=== PATIENT | female | born 1995 | race Caucasian/White ===

== ENCOUNTER → 2018-09-22 13:19 | Outpatient (CLI) | payer MEDICAID, SELFPAY ==
[2016-10-13 23:15] VITALS: BMI 25.5
[2018-09-22 14:31] LABS: AST(SGOT) 15 U/L (15-37); Alanine Aminotransfer ALT/SGPT 20 U/L (13-56); Albumin, Serum 3.7 g/dL (3.2-5.0); Alkaline Phosphatase 79 U/L (45-117); Bilirubin, Direct 0.14 mg/dL (0.00-0.30); Globulin 3.7 g/dL (2.2-4.2); Protein, Total 7.4 g/dL (6.4-8.2)
[2018-09-23 11:27] LABS: Hep C Antibodies <0.1 s/co ratio (0.0-0.9)
== END ==
DX: R63.0 Anorexia (principal); R53.81 Other malaise; R11.0 Nausea
CPT/HCPCS: 36415; 80076; 86803

== ENCOUNTER → 2019-01-06 | Outpatient (CLI) | payer MEDICAID, SELFPAY ==
[2019-01-06 18:06] LABS: Chlamydia Trachomatis by PCR Negative (Negative); Neisserai gonorrhoeae by PCR Negative (Negative); Probe Check PASS; Sample Adequacy Control PASS; Specimen Processing Control PASS
[2019-01-12 17:21] LABS: HPV Reflexed? NOT INDICATED
== END | disposition home or self-care (01) ==
LOC: LABSPEC 14:19
PROVIDERS: Visit Provider Obstetrics & Gynecology
DX: Z12.4 Encounter for screening for malignant neoplasm of cervix (principal); Z11.3 Encounter for screening for infections with a predominantly sexual mode of transmission
CPT/HCPCS: 87491; 87591; 88175; G0145

== ENCOUNTER 2019-02-28 22:45 | Emergency (ER) | payer MEDICAID, SELFPAY ==
[2019-02-28 22:45] VITALS: BP 118/72; PULSE 87; RESP 16; TEMP 36.9; O2SAT 99; BMI 26.7
[2019-02-28 23:34] LABS: Bacteria 0 SEEN /hpf (None Seen); Mucous, Urine 0 SEEN /hpf (<or=2+); Squamous Epithelial Cells - UA 0 SEEN /hpf (5-10); White Blood Cells 0 SEEN /hpf (0-5)
[2019-02-28] MEDS: 0.9% Normal Saline 1,000 ML 1000 ML IV (23:35)
[2019-02-28 23:39] LABS: Absolute Lymphocyte Count 3.63 X10^3/ul (0.83-4.51); Absolute Neutrophil Count 5.5 X10^3/uL (2.0-7.7); Basophil# 0.01 X10^3/uL; Basophil% 0.1 % (0-1); Eosinophil# 0.06 X10^3/uL; Eosinophils% 0.6 % (0-5); Hematocrit 35.6 % (37-47); Hemoglobin 11.9 g/dl (12.0-15.0); Lymphocyte # 3.63 X10^3/ul (4.0); Lymphocyte % 37.2 % (19-41); Mean Corp Hgb Conc 33.4 g/gl (32-36); Mean Corpuscular Hgb 26.7 pg (27.0-32.0); Mean Platelet Vol. 10.3 fl (6.2-12.0); Monocyte# 0.58 X10^3/uL; Monocyte% 5.9 % (0-10); Neutrophil # 5.46 X10^3/uL (2.7-7.7); Neutrophil % 56.1 % (47-70); Platelet Count 240 K/mm3 (150-450); RBC Distribution Width CV 12.8 % (11.6-14.6); RBC Distribution Width SD 36.3 fl (35.1-43.9); Red Blood Count 4.45 M/mm3 (4.2-5.4); White Blood Count 9.8 K/mm3 (4.4-11.0)
[2019-02-28 23:40] LABS: Color, Urine Yellow (Yellow); Glucose, Dipstick Normal (Normal); Ketone-Dipstick Negative (Negative); Leukocyte Esterase-Dipstick Negative /ul (Negative); Nitrite-Dipstick Negative (Negative); Occult Blood-Urine 50 /ul (Negative); Protein-Dipstick Negative (Negative); Specific Gravity, Urine 1.015 (1.002-1.030); Urine Bilirubin Dipstick Negative (Negative); Urine Clarity Clear (Clear); Urine Urobilinogen Normal (Normal); Urine pH 6.5 (5.0 - 8.0)
[2019-02-28 23:41] LABS: POSITIVE COUNT NO; POSITIVE DIFFERENTIAL NO; POSITIVE MORPHOLOGY NO
[2019-03-01 00:01] LABS: Red Blood Cells-Urine 0-5 SEEN /hpf (0-5)
--- NOTE | 2019-03-01 00:04 | ED.VISSUMM ---
- ER Visit Summary Date of Service: 03/01/19 Chief Complaint: Vaginal bleeding History of Present Illness: The patient is a 24 F who presents with vaginal bleeding that she noticed today. Patient states she took multiple tests at home and found out she was today. Patient then started having some spotting. Patient notices bleeding when she wipes. Patient denies any hematuria. Patient denies any cramping. Patient denies any dysuria. Patient denies any back or flank pain. Patient denies any pelvic pain. Patient admits to some nausea but denies any vomiting. Patient denies any fevers or chills. Physical Examination: Vital signs are stable. Patient is afebrile. Patient is in no acute distress. Oral mucosa is pink and moist. Neck is supple. Trachea is midline. There is no JVD noted. Heart was regular rate and rhythm. Lungs are clear and equal bilateral. Abdomen is soft. Bowel sounds are normal. There is no tenderness. There is no guarding noted. Skin is warm dry. Cranial nerves II through XII are intact. There are no focal motor or sensory deficits noted. The remaining physical exam is within normal limits. Test Results: CBC showed a slight anemia with a hemoglobin of 11.9 and hematocrit 35.6. Basic metabolic profile was normal. Urinalysis showed occult blood of 50 with 0-5 red blood cells. Quantitative hCG was obtained and was 177. Emergency Department Course and Treatment: Patient was advised of her test results. Patient was advised that her hCG level may be either a very early or possible miscarriage. Patient was advised that ultrasound will not show anything at that level. Patient was instructed on vaginal rest. Patient was instructed to follow-up with her CONSULTANT TEACHER in 2-3 days. Patient understood and was agreeable with the plan. All questions were answered. Disposition: Discharge home Impression: Threatened spontaneous This note was generated with [employer] dictation software. It may contain incorrect words, spelling, and punctuation that were not noted in review of the chart prior to signing ED Disposition - Plan for ED Patient: Disposition: Home or Assisted Living Diagnosis: Threatened spontaneous Instructions: POSSIBLE MISCARRIAGE (Threatened ) Referrals: Tabitha Macario MD [Primary Care Provider] - 2 Days
[2019-03-01 00:13] LABS: hCG Titer Quant., Serum 177 mIU/mL (1-3)
[2019-03-01 00:44] LABS: Anion Gap 6 (5-15); BUN 12 mg/dL (7-18); BUN/Creat Ratio 14.5 RATIO (10-20); Calcium,Total 8.9 mg/dL (8.5-10.1); Chloride 111 mmol/L (98-107); Creatinine, Serum 0.83 mg/dL (0.55-1.02); EST Glomerular Filtration Rate 88 mL/min (>60); Est Glom Filt Rate - Afr Amer 107 mL/min (>60); Estimated Creatinine Clearance 99.88 ml/min; Glucose 97 mg/dL (74-106); Potassium 3.9 mmol/L (3.5-5.1); Sodium Level 142 mmol/L (136-145)
[2019-03-01 02:00] VITALS: BP 125/89; PULSE 82; RESP 16; O2SAT 100
== END 2019-03-01 02:02 | disposition home or self-care (01) ==
PROVIDERS: Emergency Provider Emergency Medicine
DX: O20.0 Threatened abortion (principal); Z3A.00 Weeks of gestation of pregnancy not specified
CPT/HCPCS: 80048; 81001; 84702; 85025; 96360; 99283; J7030; A4216

== ENCOUNTER → 2019-03-23 16:27 | Outpatient (CLI) | payer MEDICAID, SELFPAY ==
[2019-02-28 22:45] VITALS: BMI 26.7
[2019-03-23 19:28] LABS: Chlamydia Trachomatis by PCR Negative (Negative); Neisserai gonorrhoeae by PCR Negative (Negative); Probe Check PASS; Sample Adequacy Control PASS; Specimen Processing Control PASS
== END ==
PROVIDERS: Visit Provider Obstetrics & Gynecology
DX: Z32.01 Encounter for pregnancy test, result positive (principal); Z11.3 Encounter for screening for infections with a predominantly sexual mode of transmission
CPT/HCPCS: 87491; 87591

== ENCOUNTER → 2019-04-21 09:52 | Outpatient (CLI) | payer MEDICAID, SELFPAY ==
[2019-04-21 10:46] LABS: Color, Urine Yellow (Yellow); Glucose, Dipstick Normal (Normal); Ketone-Dipstick Negative (Negative); Leukocyte Esterase-Dipstick 25 /ul (Negative); Nitrite-Dipstick Negative (Negative); Occult Blood-Urine Negative /ul (Negative); Protein-Dipstick Negative (Negative); Urine Bilirubin Dipstick Negative (Negative); Urine Clarity Sl. Cloudy (Clear); Urine Urobilinogen Normal (Normal)
[2019-04-21 10:48] LABS: Absolute Lymphocyte Count 2.26 X10^3/uL (0.83-4.51); Absolute Neutrophil Count 6.9 X10^3/uL (2.0-7.7); Basophil# 0.02 X10^3/uL; Basophil% 0.2 % (0-1); Eosinophil# 0.04 X10^3/uL; Eosinophils% 0.4 % (0-5); Hematocrit 35.7 % (37-47); Hemoglobin 12.2 g/dL (12.0-15.0); Lymphocyte # 2.26 X10^3/ul (4.0); Lymphocyte % 23.2 % (19-41); Mean Corp Hgb Conc 34.2 g/dL (32-36); Mean Corpuscular Hgb 27.4 pg (27.0-32.0); Mean Corpuscular Volume 80.2 fL (81-99); Mean Platelet Vol. 10.3 fl (6.2-12.0); Monocyte# 0.52 X10^3/uL; Monocyte% 5.3 % (0-10); NRBC Flagged by Analyzer 0 % (0-5); Neutrophil # 6.88 X10^3/uL (2.7-7.7); Neutrophil % 70.5 % (47-70); Platelet Count 242 K/mm3 (150-450); RBC Distribution Width CV 13.2 % (11.6-14.6); RBC Distribution Width SD 38.1 fl (35.1-43.9); Red Blood Count 4.45 M/mm3 (4.2-5.4); White Blood Count 9.8 K/mm3 (4.4-11.0)
[2019-04-21 10:56] LABS: COTININE Drug Screen Negative (<200 ng/mL)
[2019-04-21 11:04] LABS: Amphetamine Urine VISTA NEGATIVE (<1000 ng/mL); Barbiturate Urine VISTA NEGATIVE (< 200 ng/mL); Benzodiazepine Urine VISTA NEGATIVE (< 200 ng/mL); Cocaine Urine VISTA NEGATIVE (< 300 ng/mL); Ecstacy Urine VISTA NEGATIVE (< 500 ng/mL); Methadone Urine VISTA NEGATIVE (< 300 ng/mL); PCP Urine VISTA NEGATIVE (< 25 ng/mL); THC Urine VISTA NEGATIVE (< 50 ng/mL); Vista UDS pH Range 6
[2019-04-21 11:23] LABS: Thyroid Stim Hormone (TSH) 1.39 uIU/mL (0.358-3.74)
[2019-04-21 12:09] LABS: HIV - WCH Non-Reactive (Nonreactive); Hepatitis B Surface Antigen Non-Reactive (Nonreactive); Hepatitis C Antibody Non-Reactive (Nonreactive); Rubella IgG 95.8 IU/mL
[2019-04-23 01:38] LABS: Prenatal RPR NONREACTIVE (NONREACTIVE)
== END ==
PROVIDERS: Visit Provider Obstetrics & Gynecology
DX: Z34.81 Encounter for supervision of other normal pregnancy, first trimester (principal)
CPT/HCPCS: 36415; 80307; 81002; 82306; 84443; 85025; 86703; 86762; 86803; 87340

== ENCOUNTER 2019-05-22 00:27 | Emergency (ER) | payer MEDICAID, SELFPAY ==
[2019-05-22 00:28] VITALS: BP 150/84; PULSE 98; RESP 18; TEMP 37.1; O2SAT 96; BMI 28.6
--- NOTE | 2019-05-22 00:48 | EKG12_ITS ---
Test Reason : CP Blood Pressure : / mmHG Vent. Rate : 101 BPM Atrial Rate : 101 BPM P-R Int : 146 ms QRS Dur : 086 ms QT Int : 342 ms P-R-T Axes : 060 047 016 degrees QTc Int : 443 ms Sinus tachycardia Possible Left atrial enlargement Borderline ECG Confirmed by HALLEY GREGORY, RIGO ([id number]), film editor DONNA MORROW ([id number]) on 05/25/2019 11:57:28 AM Referred By: FLOWER Confirmed By:KATHERIN ROWLEY MD
--- NOTE | 2019-05-22 00:48 | RAD_ITS ---
STUDY: X-RAY CHEST REASON FOR EXAM: Female, 24 years old. Left shoulder pain TECHNIQUE: Single AP portable view of the chest. COMPARISON: None. FINDINGS: The lungs are clear and expanded. There is no demonstrated pleural abnormality. Normal size heart. Normal mediastinum and [place]. Normal visualized pulmonary arteries. Normal visualized aortic arch and descending thoracic aorta. Normal visualized thoracic spine. Normal visualized ribs, clavicles, and shoulders. There is no demonstrated abnormality of the visualized soft tissue structures of the upper abdomen. RAD/Chest 1 View (Portable) IMPRESSION: Normal x-ray examination of the chest. Electronically Signed: Mark López, at 1:51 EDT Tel , Service support ,
--- NOTE | 2019-05-22 00:54 | ED.DCSUM_ITS ---
- ER Visit Summary Date of Service: 05/22/19 Chief Complaint: Chest pain History of Present Illness: The patient is a 24 F who presents with chest pain that began today. Patient states pain was there when she woke up. Patient describes the pain as sharp and throbbing. Patient states the pain is over the left chest. Patient states she was having pain in her left shoulder and left neck earlier in the day. Patient states her pain is worse with deep breathing and movement of her torso. Patient states her pain improves with bending forward. Patient states she does have some shortness of breath. Patient denies any nausea or vomiting. Patient denies any diaphoresis. Patient denies any palpitations or lightheadedness. Patient states she does have some reflux symptoms. Patient denies any cough or fever. Patient is approximately 16 weeks . Patient denies any recent travel or recent surgery. Patient denies any history of DVT or PE. Patient denies any cardiac risk factors. Physical Examination: Vital signs are stable except for slightly elevated blood pressure 150/84. Patient is afebrile. Patient is in no acute distress. Oral mucosa is pink and moist. Neck is supple. Trachea is midline. There is no JVD noted. Heart was regular rate and rhythm. Lungs are clear and equal bilaterally. There is reproducible tenderness over the left lower chest wall. There is no bony crepitance or step-off. Abdomen is soft. Bowel sounds are normal. There is no tenderness. There is no guarding noted. Skin is warm dry. Cranial nerves II through XII are intact. There are no focal motor or sensory deficits noted. Test Results: EKG showed sinus rhythm with a rate of 101. There is some left atrial enlargement. There are no acute ST or T wave changes. Portable chest x- ray was obtained. There is no acute cardiopulmonary process. This is interpreted by the radiologist and myself. CBC showed a mild leukocytosis of 13.8. Hemoglobin was 11.6 and hematocrit 34.2. Basic metabolic profile was within normal limits. Troponin was normal. D-dimer was elevated at 0.81. Because of this, a CTA of the chest was obtained. There is no evidence of pulmonary embolism or dissection. Emergency Department Course and Treatment: Patient was given aspirin here. Patient has a HEART score of 1. Patient was advised that this is low risk for acute cardiac event. Patient was advised that this is most likely muscular strain in her chest wall. Patient was instructed to follow-up with her primary care physician and DEVELOPMENT TEAM LEAD in 5 to 7 days. Patient understood and was agreeable with the plan. All questions were answered. Disposition: Discharge home Impression: Chest pain of uncertain etiology This note was generated with [employer] dictation software. It may contain incorrect words, spelling, and punctuation that were not noted in review of the chart prior to signing ED Disposition - Plan for ED Patient: Disposition: Home or Assisted Living Diagnosis: Chest pain Instructions: CHEST PAIN, Uncertain Cause Referrals: Care Physician,No Primary [Primary Care Provider] -
[2019-05-22] MEDS: Aspirin 81 MG TAB.CHEW 324 MG PO (01:03)
[2019-05-22] MEDS: 0.9% Normal Saline 1,000 ML 1000 ML IV (01:04)
[2019-05-22 01:06] LABS: Absolute Lymphocyte Count 3.39 X10^3/uL (0.83-4.51); Absolute Neutrophil Count 9.8 X10^3/uL (2.0-7.7); Basophil# 0.02 X10^3/uL; Basophil% 0.1 % (0-1); Eosinophil# 0.04 X10^3/uL; Eosinophils% 0.3 % (0-5); Hematocrit 34.2 % (37-47); Hemoglobin 11.6 g/dL (12.0-15.0); Lymphocyte # 3.39 X10^3/ul (4.0); Lymphocyte % 24.5 % (19-41); Mean Corp Hgb Conc 33.9 g/dL (32-36); Mean Corpuscular Hgb 27.6 pg (27.0-32.0); Mean Corpuscular Volume 81.4 fL (81-99); Mean Platelet Vol. 10.3 fl (6.2-12.0); Monocyte# 0.55 X10^3/uL; NRBC Flagged by Analyzer 0 % (0-5); Neutrophil # 9.77 X10^3/uL (2.7-7.7); Neutrophil % 70.7 % (47-70); Platelet Count 230 K/mm3 (150-450); RBC Distribution Width SD 38.3 fl (35.1-43.9); White Blood Count 13.8 K/mm3 (4.4-11.0)
[2019-05-22 01:12] VITALS: O2SAT 99
[2019-05-22 01:18] LABS: Anion Gap 8 (5-15); BUN 13 mg/dL (7-18); BUN/Creat Ratio 22.6 RATIO (10-20); Calcium,Total 8.9 mg/dL (8.5-10.1); Chloride 107 mmol/L (98-107); Creatinine, Serum 0.58 mg/dL (0.55-1.02); EST Glomerular Filtration Rate 135 mL/min (>60); Est Glom Filt Rate - Afr Amer 163 mL/min (>60); Estimated Creatinine Clearance 142.94 ml/min; Glucose 100 mg/dL (74-106); Potassium 3.4 mmol/L (3.5-5.1); Sodium Level 137 mmol/L (136-145)
--- NOTE | 2019-05-22 01:35 | ED.RN ---
DR. CRENSHAW WAS MADE AWARE THAT PATIENT WAS HAVING PAIN UP UNDER HER LEFT BREAST THAT WAS INCREASING WHEN SHE GOT UP TO THE BATHROOM. NO NEW ORDERS ENTERED.
[2019-05-22 01:41] LABS: D-Dimer Quantitative (DVT/PE) 0.81 FEU/ug/m (0.27-0.49)
--- NOTE | 2019-05-22 01:42 | CT_ITS ---
STUDY: CTA CHEST REASON FOR EXAM: Female, 24 years old. Elevated d-dimer. Increased WBC count RADIATION DOSAGE (If Supplied By Facility): CTDIvol = ( 11.63 ) mGy, DLP = ( 415.76 ) mGycm TECHNIQUE: The examination was performed with the intravenous administration of 75ML IV Isovue 370. Post-processing of the angiographic images was performed, with multiplanar reformation and 3D reconstruction. Individualized dose optimization techniques were used for this CT. COMPARISON: None. FINDINGS: TRACHEA, THYROID, ESOPHAGUS: No tracheomalacia,stricture or wall thickening. Thyroid and esophagus are normal CARDIOVASCULAR SYSTEM: The thoracic aorta is normal with no focal aneurysm or dissection. There are no abnormal calcifications/metallic densities at the aortic root. The pulmonary trunk and the left and right pulmonary arteries and their lobar and segmental branches all fail to show any abnormal and persistent filling defects to indicate the presence of pulmonary embolism. The heart is normal in size with no demonstration of any right ventricular strain. No developmental vascular anomalies are seen. JOSE MARIA AND LYMPH NODES: No hilar masses and no mediastinal, hilar, axillary or supraclavicular adenopathy LUNGS, LOW-ATTENUATION: No traction bronchiectasis, honeycombing,emphysema, lung cysts or cavitations LUNGS, HIGH ATTENUATION: No nodules/masses, ground glass opacities/consolidations or increased interstitial markings LUNGS, MOSAIC/CRAZY PAVING: Not evident PLEURA AND CHEST WALL: No plural effusions, pneumothoraces,rib fractures or any osteolytic/osteoblastic changes . The soft tissue chest wall including the breasts are normal UPPER ABDOMEN: Unremarkable CT/CTA Chest W/WO Contrast IMPRESSION: Normal CTA chest examination, without a demonstrated pulmonary embolism or arterial dissection. No acute findings in the lungs Electronically Signed: Alfa Farrar MD at 2:51 EDT Tel , Service support ,
[2019-05-22 02:36] VITALS: BP 125/98; PULSE 102; RESP 22; O2SAT 100
[2019-05-22 03:13] VITALS: BP 120/75; PULSE 97; RESP 15; O2SAT 99
== END 2019-05-22 03:14 | disposition home or self-care (01) ==
PROVIDERS: Emergency Provider Emergency Medicine
DX: O99.89 Other specified diseases and conditions complicating pregnancy, childbirth and the puerperium (principal); R07.9 Chest pain, unspecified; Z3A.16 16 weeks gestation of pregnancy
CPT/HCPCS: 71045; 71275; 80048; 84484; 85025; 85379; 93005; 96360; 96361; 99284; J7030; Q9967; A4216

== ENCOUNTER 2019-08-22 07:25 | Outpatient (CLI) | payer MEDICAID, SELFPAY ==
[2019-08-22 07:51] VITALS: BMI 29.7
[2019-08-22] MEDS: Lactated Ringers 500 ML IV.SOLN. 1000 ML IV (07:55)
[2019-08-22] MEDS: Ondansetron 4 MG/2 ML Vial IV (08:05)
[2019-08-22 08:38] LABS: ALB/GLOB Ratio 0.6 RATIO (0.9-2.4); AST(SGOT) 15 U/L (15-37); Alanine Aminotransfer ALT/SGPT 13 U/L (13-56); Albumin, Serum 2.9 g/dL (3.2-5.0); Alkaline Phosphatase 126 U/L (45-117); Anion Gap 10 (5-15); BUN 8 mg/dL (7-18); BUN/Creat Ratio 11.5 RATIO (10-20); Calcium,Total 8.6 mg/dL (8.5-10.1); Chloride 110 mmol/L (98-107); Creatinine, Serum 0.69 mg/dL (0.55-1.02); EST Glomerular Filtration Rate 108 mL/min (>60); Est Glom Filt Rate - Afr Amer 131 mL/min (>60); Estimated Creatinine Clearance 120.15 ml/min; Globulin 4.5 g/dL (2.2-4.2); Glucose 101 mg/dL (74-106); Potassium 3.7 mmol/L (3.5-5.1); Protein, Total 7.4 g/dL (6.4-8.2); Sodium Level 140 mmol/L (136-145)
[2019-08-22 08:43] LABS: Mucous, Urine 0 SEEN /hpf (<or=2+); Red Blood Cells-Urine 0 SEEN /hpf (0-5)
[2019-08-22 08:44] LABS: Color, Urine Yellow (Yellow); Glucose, Dipstick Normal (Normal); Ketone-Dipstick 5 mg/dl (Negative); Leukocyte Esterase-Dipstick 25 /ul (Negative); Nitrite-Dipstick Negative (Negative); Occult Blood-Urine 10 /ul (Negative); Protein-Dipstick 30 mg/dl (Negative); Specific Gravity, Urine 1.015 (1.002-1.030); Urine Bilirubin Dipstick Negative (Negative); Urine Clarity Clear (Clear); Urine Urobilinogen Normal (Normal)
[2019-08-22 08:52] LABS: Bacteria 1+ /hpf (None Seen); Squamous Epithelial Cells - UA 0-5 SEEN /hpf (5-10); White Blood Cells 0-5 SEEN /hpf (0-5)
--- NOTE | 2019-08-22 13:05 | OB.TRI.NOTE ---
History of Present Illness Date of Service: 08/22/19 Was patient seen by the physician?: Yes Reason For Visit: BACK PAIN,ABD PAIN, VOMITING Date of Service: 08/22/19 Final DYLLAN: 11/07/19 Final DYLLAN Source: US <20 weeks Gestational age: 29 Weeks and 0 Days History of Present Illness: Pt states she began vomiting last evening, now 10 times by arrival at [facility]; small amount diarrhea; denies fever, malaise, STROUD or s/s UTI; states her young son has had viral illness with vomiting recently Allergies No Known Allergies Allergy (Verified 10/13/16 23:17) Laboratory Studies: Laboratory Tests 08/22/19 08/22/19 Range/Units 08:25 07:55 Sodium 140 (136-145) mmol/L Potassium 3.7 (3.5-5.1) mmol/L Chloride 110 H (98-107) mmol/L Carbon Dioxide 20.0 L (21.0-32.0) mmol/L Anion Gap 10 (5-15) BUN 8 (7-18) mg/dL Creatinine 0.69 (0.55-1.02) mg/dL Estim Creat Clear Calc 120.15 ml/min Est GFR (MDRD) Af Amer 131 (>60) mL/min Est GFR (MDRD) Non-Af 108 (>60) mL/min BUN/Creatinine Ratio 11.5 (10-20) RATIO Glucose 101 (74-106) mg/dL Calcium 8.6 (8.5-10.1) mg/dL Total Bilirubin 0.40 (0.20-1.00) mg/dL AST 15 (15-37) U/L ALT 13 (13-56) U/L Alkaline Phosphatase 126 H (45-117) U/L Total Protein 7.4 (6.4-8.2) g/dL Albumin 2.9 L (3.2-5.0) g/dL Globulin 4.5 H (2.2-4.2) g/dL Albumin/Globulin Ratio 0.6 L (0.9-2.4) RATIO Urine Color Yellow (Yellow) Urine Clarity Clear (Clear) Urine pH 6.0 (5.0 - 8.0) Ur Specific [place] 1.015 (1.002-1.030) Urine Protein 30 H (Negative) mg/dl Urine Glucose (UA) Normal (Normal) mg/dl Urine Ketones 5 H (Negative) mg/dl Urine Occult Blood 10 H (Negative) /ul Urine Nitrite Negative (Negative) Urine Bilirubin Negative (Negative) mg/dL Urine Urobilinogen Normal (Normal) mg/dl Ur Leukocyte Esterase 25 H (Negative) /ul Urine RBC 0 SEEN (0-5) /hpf Urine WBC 0-5 SEEN (0-5) /hpf Ur Squamous Epith Cells 0-5 SEEN (5-10) /hpf Urine Bacteria 1+ (None Seen) /hpf Urine Mucus 0 SEEN (<or=2+) /hpf Physical Exam General: Alert, Oriented x3, Cooperative HEENT: PERRLA, EOMI Cardiovascular: Regular rate, Regular Rhythm Lungs: Clear to auscultation Abdomen: Bowel Sounds Present, Soft, Non Tender - Negative suprapubic tenderness, negative CVA tenderness, Non-Distended, Passing Flatus, Gravid Extremities:: No edema Neurological: Cranial nerves II-XII grossly intact, Deep Tendon Reflexes 2+/4 and Symmetrical, Neuro grossly intact NST - FHR Rate Baby A Baseline: 145 Variability:: Moderate Accelerations:: 10 x 10 Decelerations:: Variable NST Reactive:: Appropriate for gestational age FHR Category:: Category II - Reassuring, appropriate for gestational age Impression/Plan Impression: Viral illness Possible UTI Plan: IV LR Bolus given CMP drawn UA done; inadequate specimen for culture; pt will try prior to discharge; if unable to provide another specimen, can come to office tomorrow to provide Zofran, 4mg IVP x 1 Discharge home with diet instructions, rest, increase fluids RX for Zofran, 4mg PO Q8 hours PRN; may take Imodium, per package instructions for diarrhea; Tylenol PRN for back pain Call if s/s persist or do not improve
== END 2019-08-22 13:03 | disposition home or self-care (01) ==
LOC: WPOUT 07:42 → WP 07:44
PROVIDERS: Visit Provider Advanced Practice Midwife
DX: O98.513 Other viral diseases complicating pregnancy, third trimester (principal); B34.9 Viral infection, unspecified; O26.893 Other specified pregnancy related conditions, third trimester; M54.9 Dorsalgia, unspecified; R10.9 Unspecified abdominal pain; Z3A.29 29 weeks gestation of pregnancy
CPT/HCPCS: 96374; 36415; 59025; 59050; 80053; 81001; 99218; J7120; G0378; J2405

== ENCOUNTER → 2019-08-24 11:09 | Outpatient (CLI) | payer MEDICAID, SELFPAY ==
[2019-08-22 07:51] VITALS: BMI 29.7
[2019-08-24 13:39] LABS: Hematocrit 31.5 % (37-47); Hemoglobin 10.1 g/dL (12.0-15.0); Mean Corp Hgb Conc 32.1 g/dL (32-36); Mean Corpuscular Hgb 25.8 pg (27.0-32.0); Mean Corpuscular Volume 80.6 fL (81-99); Mean Platelet Vol. 10.5 fl (6.2-12.0); Platelet Count 246 K/mm3 (150-450); RBC Distribution Width CV 13.5 % (11.6-14.6); RBC Distribution Width SD 39.1 fl (35.1-43.9); Red Blood Count 3.91 M/mm3 (4.2-5.4); White Blood Count 9.8 K/mm3 (4.4-11.0)
[2019-08-24 13:54] LABS: Glucose Challenge Gest 1H 50g 83 mg/dL (70-140)
== END ==
PROVIDERS: Visit Provider Obstetrics & Gynecology
DX: O99.283 Endocrine, nutritional and metabolic diseases complicating pregnancy, third trimester (principal); E55.9 Vitamin D deficiency, unspecified; Z3A.00 Weeks of gestation of pregnancy not specified
CPT/HCPCS: 36415; 82306; 82950; 85027

== ENCOUNTER → 2019-10-11 | Outpatient (CLI) | payer MEDICAID, SELFPAY | END | disposition home or self-care (01) | LOC: LABSPEC 14:05 | PROVIDERS: Visit Provider Obstetrics & Gynecology | DX: Z36.85 Encounter for antenatal screening for Streptococcus B (principal) | CPT/HCPCS: 87081 ==

== ENCOUNTER 2019-10-30 13:20 | Outpatient (CLI) | payer MEDICAID, SELFPAY ==
[2019-10-30 13:28] VITALS: BMI 35.5
--- NOTE | 2019-10-30 14:07 | OB.TRI.NOTE ---
- Problem List (1) 38 weeks gestation of Status: Acute History of Present Illness Date of Service: 10/30/19 Was patient seen by the physician?: Yes Reason For Visit: NST, anxiety & depression Date of Service: 10/30/19 Final DYLLAN: 11/07/19 Final DYLLAN Source: US <20 weeks Gestational age: 38 Weeks and 6 Days History of Present Illness: 24yo @ 38 6/7wga presents for scheduled NST to follow low normal baseline FH yesterday in office during evaluation for decreased movement. Patient reports excellent movement today. Denies contractions, leaking of fluid or vaginal bleeding. She reports isolation, decreased motivation, irritability, lack of focus during the day and has increased her Zoloft from 100mg to 200mg 2-3x/week the last [address] the last month. She notes however she feels even worse when she does not do this. Allergies No Known Allergies Allergy (Verified 10/30/19 13:30) Physical Exam Vitals: AVSS General: Alert, Oriented x3, Cooperative, No apparent distress HEENT: Atraumatic, Normocephalic Neurological: Neuro grossly intact NST - FHR Rate Baby A Baseline: 125 Variability:: Moderate Accelerations:: 15 x 15 Decelerations:: None NST Reactive:: Yes FHR Category:: Category I Uterine Activity:: 0/10, occasional irritability Impression/Plan 24yo @ 38 6/7wga -Reactive NST, status reassuring. Reviewed FM, labor precautions. -Discussed mood sx further, No SI. pt no longer working, started maternity leave and this is likely precipitant from discussion. +anxiety and depressive sx in discussion. Will continue once weekly counseling. Increase Zoloft 150mg PO daily. Exercise prescription given.
== END 2019-10-30 14:15 | disposition home or self-care (01) ==
LOC: WPOUT 13:26 → WP 13:27
PROVIDERS: Visit Provider Obstetrics & Gynecology
DX: O36.8330 Maternal care for abnormalities of the fetal heart rate or rhythm, third trimester, not applicable or unspecified (principal); O99.343 Other mental disorders complicating pregnancy, third trimester; F32.9 Major depressive disorder, single episode, unspecified; F41.9 Anxiety disorder, unspecified; Z3A.38 38 weeks gestation of pregnancy
CPT/HCPCS: 59025; 59050; 99218; G0378

== ENCOUNTER 2019-11-01 08:00 | Inpatient (IN) | payer MEDICAID, SELFPAY ==
[2019-11-01 04:57] VITALS: BMI 35.9
[2019-11-01] MEDS: 0.9% Saline Lock 10 ML Syringe IV (05:35)
[2019-11-01] MEDS: fentaNYL 100 MCG/2 ML Ampul 25 MCG IV (05:35)
--- NOTE | 2019-11-01 07:34 | OB.TRI.HP_ITS ---
- Problem List (1) 39 weeks gestation of Status: Acute History of Present Illness Date of Service: 11/01/19 Was patient seen by the physician?: Yes Reason For Visit: RULE OUT LABOR Final DYLLAN: 11/07/19 Final DYLLAN Source: US <20 weeks Gestational age: 39 Weeks and 1 Days History of Present Illness: 24yo @ 39 1/7wga hx prior section presents with c/o painful contractions. Allergies No Known Allergies Allergy (Verified 11/01/19 05:00) - Pertinent Past Medical History Medical History: Past Medical History (Last Updated 11/01/19 @ 07:[address] Tabitha Macario MD) Depression Surgical History: Past Surgical History (Last Updated 11/01/19 @ 07:[address] Tabitha Macario MD) Previous section 2014 Physical Exam Vitals: avss General: Alert, Oriented x3, Cooperative, No apparent distress HEENT: Atraumatic, Normocephalic Abdomen: Soft, Non Tender, Non-Distended, Gravid Neurological: Neuro grossly intact TOOL PROGRAMMER: Normal external genitalia Estimated gestational size: Appropriate for gestational size Presentation: Cephalic Cervix Dilation (cm): 1.5 Station: -3 Effacement (%): 75 NST - FHR Rate Baby A Baseline: 140 Variability:: Moderate Accelerations:: 15 x 15 Decelerations:: Variable NST Reactive:: Yes FHR Category:: Category II Uterine Activity:: 3/10 min Impression/Plan 24yo @ 39 1/7wga -Discussed early admission versus continued observation. Reviewed r/b early admission including increased use of pitocin was associated potential increased risk for uterine rupture. Following discussion, pt opts to continue observation at this time. Will plan for repeat cervix check approximately 2 hours after the last. Continuous monitoring given TOLAC. -Maternal and statuses reassuring
[2019-11-01] MEDS: Lactated Ringers 1,000 ML 50 ML IV (08:06)
--- NOTE | 2019-11-01 08:09 | PCM.HP.OB ---
- Problem List (1) 39 weeks gestation of Status: Acute History Date of Admission: 12/25/14 Final DYLLAN: 11/07/19 Final DYLLAN Source: US <20 weeks Gestational age: 39 Weeks and 1 Days History of this : This is a 24 year-old, G [2], P 1[], at 39 1/7 weeks gestational age with c/o contractions. Medical History: Medical History (Last Updated 11/01/19 @ 07:[address] Tabitha Macario MD) Depression F32.9 Surgical History: Surgical History (Last Updated 11/01/19 @ 07:[address] Tabitha Macario MD) Previous section Z98.891 2015 Allergies No Known Allergies Allergy (Verified 11/01/19 05:00) Home Medications: Home Medications Cholecalciferol (Vitamin D3) [Vitamin D3] 5,000 unit PO DAILY 05/22/19 Pnv No.95/Ferrous Fum/Folic AC [ Caplet] 1 ea PO DAILY 05/22/19 Ferrous Sulfate 10/30/19 Sertraline HCl [Zoloft] 150 mg PO DAILY #45 tab 10/30/19 Smoking Status: Former smoker Alcohol: None Number of Fetus(es): 1 NST - FHR Rate Baby A Baseline: 140 Variability:: Moderate Accelerations:: 15 x 15 Decelerations:: Variable NST Reactive:: Yes FHR Category:: Category I Uterine Activity:: tracing poorly History Past Pregnancies: Past Pregnancies Delivery Date Name GA/ Weeks Outcome Route Wt Infant Sex Anesthesia Delivery Location FOB Provider 12/26/14 [place] 41 PLTCS, intolerance of labor PLTCS 3067g M Epidural [facility] Jose Miguel Gutierrez Labs: Mom's Current Diagnoses Major depressive disorder, single episode, unspecified 11/01/19 Anxiety disorder, unspecified 11/01/19 Maternal care for unspecified type scar from previous delivery 11/01/19 Maternal care for abnormalities of the heart rate or rhythm, third trimester, not applicable or unspecified 11/01/19 Labor and delivery complicated by other cord complications, not applicable or unspecified 11/01/19 Second degree perineal laceration during delivery 11/01/19 Abnormality in heart rate and rhythm complicating labor and delivery 11/01/19 Labor and delivery complicated by meconium in amniotic fluid 11/01/19 Other mental disorders complicating , third trimester 11/01/19 Other mental disorders complicating childbirth 11/01/19 Diseases of the circulatory system complicating the puerperium 11/01/19 Tachycardia, unspecified 11/01/19 Single live 11/01/19 38 weeks gestation of 11/01/19 39 weeks gestation of 11/01/19 Personal history of nicotine dependence 11/01/19 Mom's Labs & Results 11/01/19 11/01/19 11/03/19 08:00 08:00 09:50 WBC 19.7 H 14.7 H RBC 4.70 3.24 L Hgb 12.2 8.7 L Hct 38.5 27.1 L MCV 81.9 83.6 MCH 26.0 L 26.9 L MCHC 31.7 L 32.1 RDW Std Deviation 47.8 H 50.0 H RDW Coeff of [place]ag[place] 16.0 H 16.6 H Plt Count 246 182 MPV 10.8 10.1 Immature Gran % (Auto) 0.700 Neut % (Auto) 77.6 H Lymph % (Auto) 16.4 L Rich % (Auto) 4.8 Eos % (Auto) 0.3 Baso % (Auto) 0.2 Absolute Neuts (auto) 15.3 H Absolute Lymphs (auto) 3.24 Nucleated RBC % 0 Blood Type B POSITIVE Antibody Screen NEGATIVE Course Did the patient receive Yes care? Labs Blood Type: B RH: POSITIVE RPR/VDRL/Syphilis Nonreactive Rubella status Immune HbSAg Negative Date Done: 04/21/19 Chlamydia Negative Gonorrhea Negative HIV/AIDS Non-Reactive Group B Strep: Negative Current Obstetrical History Gestational Diabetes No Incompetent Cervix No Infertility No IUGR No Macrosomia No Hypertension/Pre-eclampsia No Placenta Previa/Abruption No PTL/PROM No Uterine anomaly No Oligohydramnios No Polyhydramnios No Multiple gestation No Past Medical History Asthma Yes: as a child Diabetes No Hypertension No Heart disease No Mitral valve prolapse No Neurologic/Seizure disorder/ No Migraines Kidney disease No Liver disease No Varicosities No Clotting disorders/Hx of DVT No Thyroid Dysfunction No Other medical diseases No Psychiatric disorders Yes: depression/anxiety Major trauma No Abnormal PAP smear No Sleep apnea No Mammogram in the last 2 years No Social History Marital Status: SINGLE Alleged father Jose Miguel Tomlinson Smoking Yes Smoking Status Former smoker How long have you used n/a substances (years)? Expected Delivery Method: Physical Exam Vitals: avss General: Alert, Oriented x3, Cooperative, No apparent distress HEENT: Atraumatic, Normocephalic Cardiovascular: Regular rate, Regular Rhythm, Normal S1, Normal S2 Lungs: Clear to auscultation, Normal air movement Abdomen: Soft, Non Tender, Non-Distended, Gravid Neurological: Neuro grossly intact TEMPLATE CUTTER: Normal external genitalia Estimated gestational size: Appropriate for gestational size Presentation: Cephalic Cervix Dilation (cm): 2 Station: -2 Effacement (%): 70 - by RN exam WS Assessment/Plan All Active Problems (Last Updated 11/01/19 @ 07:[address] Tabitha Macario MD) 39 weeks gestation of (Acute) 38 weeks gestation of (Resolved) This is a 24 year-old, G [2], P [1], at 39 1/7 weeks gestational age in latent labor, TOLAC. -Pt requests epidural, thus will admit at this time. Anesthesiology consultation. -Continuous monitoring. Consider amniotomy following placement of epidural with ISE. -Maternal and statuses overall reassuring.
[2019-11-01] MEDS: Lactated Ringers 500 ML 999 ML IV ×2 (08:15→19:27)
[2019-11-01 08:34] LABS: Absolute Lymphocyte Count 3.24 X10^3/uL (0.83-4.51); Absolute Neutrophil Count 15.3 X10^3/uL (2.0-7.7); Basophil# 0.04 X10^3/uL; Basophil% 0.2 % (0-1); Eosinophil# 0.05 X10^3/uL; Eosinophils% 0.3 % (0-5); Hematocrit 38.5 % (37-47); Hemoglobin 12.2 g/dL (12.0-15.0); Lymphocyte # 3.24 X10^3/ul (4.0); Lymphocyte % 16.4 % (19-41); Mean Corp Hgb Conc 31.7 g/dL (32-36); Mean Corpuscular Volume 81.9 fL (81-99); Mean Platelet Vol. 10.8 fl (6.2-12.0); Monocyte# 0.95 X10^3/uL; Monocyte% 4.8 % (0-10); NRBC Flagged by Analyzer 0 % (0-5); Neutrophil % 77.6 % (47-70); Platelet Count 246 K/mm3 (150-450); RBC Distribution Width SD 47.8 fl (35.1-43.9); White Blood Count 19.7 K/mm3 (4.4-11.0)
[2019-11-01] MEDS: fentaNYL-bupivacaine (epidural) 100 ML BAG EPIDURAL ×3 (09:25→18:15)
[2019-11-01] MEDS: Mag Hydrox/Al Hydrox/Simeth 30 ML UDC PO ×2 (09:47→18:59)
[2019-11-01] MEDS: Lactated Ringers 1,000 ML 200 ML IV ×2 (12:37→17:54)
[2019-11-01] MEDS: Ondansetron 4 MG/2 ML Vial IV (13:49)
--- NOTE | 2019-11-01 18:47 | PN.OBGYN_ITS ---
Patient Problems: Active and Suspected Problems (Last Updated 11/01/19 @ 07:[address] Tabitha Macario MD) 39 weeks gestation of (Acute) Subjective: Patient has progressed to 8 cm 95% effaced -2 station. Artificial rupture membrane shows moderate meconium stained fluid. Intrauterine pressure catheter and scalp lead placed. Epidural very effective. heart tones reactive and reassuring. - Physical Exam Vitals/I&O's: Weight: 229 lb 4.492 oz Body Mass Index (BMI) 35.9 Intake and Output for Last 24 Hours 10/30/19 10/31/19 11/01/19 23:59 23:59 23:59 Intake Total 2273.33 / 2273.33 Balance 2273.33 / 2273.33 Laboratory Results 11/01/19 08:00: WBC 19.7 H, RBC 4.70, Hgb 12.2, Hct 38.5, MCV 81.9, MCH 26.0 L, MCHC 31.7 L, RDW Std Deviation 47.8 H, RDW Coeff of [place]ag[place] 16.0 H, Plt Count 246, MPV 10.8, Immature Gran % (Auto) 0.700, Neut % (Auto) 77.6 H, Lymph % (Auto) 16.4 L, [place] % (Auto) 4.8, Eos % (Auto) 0.3, Baso % (Auto) 0.2, Absolute Neuts (auto) 15.3 H, Absolute Lymphs (auto) 3.24, Nucleated RBC % 0 11/01/19 08:00: Blood Type B POSITIVE, Antibody Screen NEGATIVE Current Medications Acetaminophen (Tylenol) 325 - 650 mg PO Q4H PRN PRN PRN Reason: Pain Score 1-3/10 Al Hydroxide/Mg Hydroxide (Mylanta Ii) 15 - 30 ml PO Q4H PRN PRN PRN Reason: INDIGESTION Last Admin: 11/01/19 09:47 Dose: 30 ml Documented by: Citric Acid/Sodium Citrate (Bicitra) 30 ml PO X1 PRN PRN Reason: Section Ephedrine Sulfate () 10 mg IV Q10M PRN PRN Reason: hypotension Ephedrine Sulfate () 10 mg IM Q30M PRN PRN Reason: hypotension Fentanyl Citrate (Sublimaze (100mcg Ampule)) 25 - 50 mcg IV Q2H PRN PRN PRN Reason: Pain Score 4-10/10 Fentanyl/Bupivacaine/Sodium Chlor () 0 ml EPIDURAL UD LAURY; Protocol Last Admin: 11/01/19 18:15 Dose: 100 ml Documented by: Lactated Ringer's () 500 mls @ 999 mls/hr IV .Q31M PRN PRN Reason: Epidural Last Infusion: 11/01/19 08:46 Dose: Infused Documented by: Lactated Ringer's () 500 mls @ 999 mls/hr IV .Q31M PRN PRN Reason: Corrective Measures Lactated Ringer's () 1,000 mls @ 50 mls/hr IV .Q20H LAURY Last Admin: 11/01/19 17:54 Dose: 200 mls/hr Documented by: Naloxone HCl 4 mg/ Dextrose 504 mls @ 0 mls/hr IV .Q0M PRN; Protocol PRN Reason: To maintain Resp. rate >10 Nalbuphine HCl (Nubain) 5 mg IV Q3H PRN PRN PRN Reason: ITCHING Naloxone HCl (Narcan) 0.02 mg IV Q1M PRN PRN Reason: RR< 10 AND PT UNRESPONSIVE Ondansetron HCl (Zofran) 4 mg IV Q4H PRN PRN PRN Reason: NAUSEA Last Admin: 11/01/19 13:49 Dose: 4 mg Documented by: Prochlorperazine Edisylate (Compazine Iv) 10 mg IV Q6H PRN PRN PRN Reason: NAUSEA Sodium Chloride () 10 - 40 ml IV X1 PRN PRN Reason: SALINE FLUSH Medical Necessity - Tobacco Use Smoking Status: Former smoker Assessment/Plan All Active Problems (Last Updated 11/01/19 @ 07:[address] Tabitha Macario MD) 39 weeks gestation of (Acute) 38 weeks gestation of (Resolved)
[2019-11-01] MEDS: Oxytocin 30 units/NS 500 ml 30 UNITS/500 ML IV.SOLN 334 UNITS IV (20:45)
--- NOTE | 2019-11-01 20:59 | PLAC_PTH ---
PATIENT: JAVID HERNANDEZ LOC: [facility] U#:[id number] AGE/SX: ROOM: WP010 RE11/01/[address]: Dr. Tabitha Gutierrez MD : 1995 BED: 1 DIS: 11/03/2019 SPEC #: [id number] RECD: 11/01/19 22:27 STATUS: RYAN SHAE #: [id number] ADOLFO: 11/01/19 20:[address]: Tal Denton DEPT: SURGICAL PATHOLOGY RECD BY: Curt Marion ENTERED: 11/02/19 09:24 SP TYPE: PLACENTA OTHR DR: Dr. Tabitha Gutierrez MD No Primary Care Phys Tissues: Placenta, NOS Procedures: Surgery Specimen Level V HEADER OPERATION: Vaginal delivery PRE-OP DIAGNOSIS: Meconium stained fluid and placenta TISSUE SUBMITTED: Placenta MICROSCOPIC DIAGNOSIS Placenta: Placental disc - third trimester placenta (526 gm). - Multiple areas of infarction with associated calcification, intraparenchymal hemorrhage and intervillous, perivillous and intravillous fibrin deposition (largest measuring 1 cm in greatest dimension). Membranes - no pathologic diagnosis. Umbilical cord - three blood vessels and moderate acute funisitis. SJ:shaylee 11/04/19 MICROSCOPIC DESCRIPTION Slides are reviewed. GROSS DESCRIPTION SPECIMEN: PLACENTA / CLINICAL INFORMATION: A. Weight: 3.209 kg B. Gestational Age: 39 weeks C. Sex: Male PLACENTAL WEIGHT (POST FIXATION): 526 gm PLACENTAL DIMENSIONS: 19 x 16 x 4 cm. Two succenturiate lobes are present measuring 3 and 4 cm in greatest dimension. PLACENTAL SHAPE: Usual ovoid with two succenturiate lobes. PLACENTAL WEIGHT FOR GESTATIONAL AGE: Within 10-99th percentile MEMBRANES - Present A. Insertion: Marginal B. Site of rupture from edge: 7 cm from edge of placental disc C. Color of membrane: Lassiter-greenish consistent with meconium staining D. Abnormalities: None UMBILICAL CORD - Present A. Color: Lassiter-arreola B. Insertion: Paracentral C. Length: 46 cm D. Diameter: 1.2 cm E. Number of vessels: Three F. Abnormalities: Focal increase in spiraling of umbilical cord is noted. PLACENTAL DISC - Present A. Color of surface: Lassiter-arreola B. surface abnormalities: None C. Maternal cotyledons: Intact with minimal tears D. Attached retro placental clot: No clot E. Cut surface: Dark red and spongy F. Lesions: Sections reveal two peripheral lassiter, indurated areas each measuring 1 cm in greatest dimension and four lassiter, indurated areas in the central portion of the placenta each measuring 0.2 to 1.5 cm in greatest dimension. Sections of the larger succenturiate lobe also reveal a lassiter, indurated area measuring 1 cm in greatest dimension. G. Separate clot: Multiple fragments of blood clot weighing 30 gm and measuring 9 x 7 x 2 cm. SECTIONS SUBMITTED: 1. Membrane roll 2. Cord, maternal end, central lassiter, indurated areas 3. Cord, end, peripheral, lassiter indurated areas. 4. Placental disc, and maternal surfaces, one central indurated area, largest 5. Placental disc, and maternal surfaces 6. Placental disc, and maternal surfaces, succenturiate lobe SJ:rg 11/03/19 TC:2 CPT: 64842
--- NOTE | 2019-11-01 21:02 | OP.PCM_ITS ---
Vaginal Delivery Maternal Presentation: Active Labor Amniotic Membrane Rupture Type: Artificial Amniotic Fluid Description: Moderate meconium Final DYLLAN: 11/07/19 Final DYLLAN Source: US <20 weeks Gestational age: 39 Weeks and 1 Days [place] doctor who attended delivery (if requested by OB): Chelsea Aggarwal MSF Date of Procedure: 11/01/19 Pre-Operative Diagnosis: IUP Post-Operative Diagnosis: IUP Surgery/ Procedure Performed: Vacuum Assisted Vaginal Delivery Type of Anesthesia: Epidural Description of Procedure: Spontaneous vaginal delivery of a viable male infant with Apgars of 8/6/5/9 from an occiput anterior presentation with moderate meconium stained fluid and meconium stained placental membranes. Cord around feet tight. No episiotomy. Second-degree midline laceration repaired with 3-0 Rapide suture under epidural. Right labial laceration 3 cm repaired with 3-0 Rapide suture. Kiwi vacuum used x1 gentle pull from low outlet to expedite delivery of the head due to deep decelerations with pushing. Single pop-off. Delivery physician: Tal Denton MD. Presentation: Vertex Placental Delivery Description: Spontaneous Placenta Disposition: Sent to Pathology Cord Vessel Description: 3 Vessels Cord Gases drawn per routine: ABG Cord Entanglement: - - Around feet/legs tight x 2 Estimated Blood Loss: 250 cc A gender: Male (1 minute): 8 (5 minute): 6 Episiotomy Description: None Laceration: Midline, 2nd degree Medications given after delivery: IV Pitocin Complications: None
--- NOTE | 2019-11-01 21:06 | DCINST_ITS ---
Discharge Diet: No Restrictions Discharge Activity: May Shower, May Take a Tub Bath May resume sexual activity in: 4-6 weeks Additional Activity Instructions:: Nothing in the vagina for 4-6 weeks. You may return to work/school in 6 weeks. Call your doctor if you observe: Fever of 101 or Higher, Inability to urinate, Inability to have a bowel movement, Using more than one pad per hour Additional Instructions: If you experience any of the following, contact your healthcare provider. * Bleeding that soaks a pad every hour for 2 hours * Unrelieved incision or abdominal pain * Swelling, redness, discharge or bleeding from your incision or episiotomy site * Your incision begins to separate * Problems urinating (including inability to urinate or burning while urinating). * Visual changes * Severe headache * Flu-like symptoms * Pain or redness in one of both of your breasts * Pain, warmth, tenderness or swelling in your legs, especially the calf area * Frequent nausea and vomiting * Symptoms of depression or anxiety If you experience any of the following, call 911 or go to the nearest Emergency Room. * Chest pain * Problems breathing * Seizure activity * Partial or complete paralysis of a body part, slurred speech, weakness or drooping of the face, or a sudden inability to walk or hold your balance Allergies/Adverse Reactions: Allergies No Known Allergies Allergy (Verified 11/01/19 05:00) Medications to take at Discharge Cholecalciferol (Vitamin D3) [Vitamin D3] 5,000 unit PO DAILY 05/22/19 Pnv No.95/Ferrous Fum/Folic AC [ Caplet] 1 ea PO DAILY 05/22/19 Ferrous Sulfate 10/30/19 Sertraline HCl [Zoloft] 150 mg PO DAILY #45 tab 10/30/19 Please Follow Up With: Tal Denton MD - [phone] When: Call to make an appointment with your doctor in 6 weeks. Primary Care Physician: Care Physician,No Primary [Primary Care Provider] - Test Results: Test results from this visit will be discussed in further detail at your follow- up appointment, if applicable.
[2019-11-01 22:27] LABS: Pathology Specimen OB SEE PATHOLOGY REPORT
[2019-11-02] VITALS: BP 121/65; PULSE 116; RESP 16; TEMP 37.1; O2SAT 98
[2019-11-02 03:57] VITALS: BP 123/69; PULSE 115; RESP 16; TEMP 37.3
[2019-11-02] MEDS: Senna/Docusate Sodium 1 Tablet PO ×2 (04:04→22:21)
[2019-11-02] MEDS: Ibuprofen 600 MG Tablet PO ×3 (04:04→22:19)
--- NOTE | 2019-11-02 07:47 | PCM.PN.BLA ---
Progress Note Patient seen, sleeping comfortably. Will revisit later today. STROKE Vital Signs/Narrative: Vital Signs Temp Pulse Resp BP 11/02/19 03:57 99.2 F H 115 H 16 123/69 H
[2019-11-02 09:40] VITALS: BP 112/65; PULSE 87; RESP 18; TEMP 36.6
[2019-11-02] MEDS: Sertraline 50 MG Tablet 150 MG PO (09:40)
[2019-11-02] MEDS: Acetaminophen 500 MG Tablet 1000 MG PO (09:40)
[2019-11-02 13:30] VITALS: BP 106/55; PULSE 100; RESP 16; TEMP 36.9
[2019-11-02 16:00] VITALS: BP 125/61; PULSE 101; RESP 18; TEMP 36.3
[2019-11-02] MEDS: oxyCODONE 5 MG Tablet PO ×2 (16:20→19:30)
[2019-11-02 19:36] VITALS: BP 124/65; PULSE 107; RESP 18; TEMP 36.3
[2019-11-03] MEDS: oxyCODONE 5 MG Tablet PO ×2 (03:36→12:47)
[2019-11-03 03:43] VITALS: BP 128/74; PULSE 108; RESP 18; TEMP 36.4
[2019-11-03] MEDS: Acetaminophen 500 MG Tablet 1000 MG PO (06:58)
--- NOTE | 2019-11-03 08:09 | PCM.PN.OB ---
Patient Problems: Active and Suspected Problems (Last Updated 11/01/19 @ 07:[address] Tabitha Macario MD) 39 weeks gestation of (Acute) Subjective: Reports her vagina and perineum are sore. No difficulties walking. Denies chest pain, headache, palpitations, shortness of breath or lightheadedness. Infant in SCN, nursing well. Pt denies heavy lochia. Objective: AVSS - Physical Exam Vitals/I&O's: Vital Signs Temp Pulse Resp BP Pulse Ox 97.5 F L 108 H 18 128/74 H 98 11/03/19 03:43 11/03/19 03:43 11/03/19 03:43 11/03/19 03:43 11/02/19 00:00 Oxygen Delivery Method Room Air Weight: 104 kg Body Mass Index (BMI) 35.9 Intake and Output for Last 24 Hours 11/01/19 11/02/19 11/03/19 23:59 23:59 23:59 Intake Total 3406.50 / 3406.50 333 / 333 Output Total 450 / 450 1000 / 1000 Balance 2956.50 / 2956.50 -667 / -667 General: Alert, Oriented x3, Cooperative, No apparent distress HEENT: Atraumatic, Normocephalic Lungs: Clear to auscultation, Normal air movement Cardiovascular: Regular rate, Regular Rhythm, Normal S1, Normal S2 Abdomen: Soft, Non Tender, Non-Distended Extremities: No edema, No Calf Tenderness Neurological: Neuro grossly intact Psych/Mental Status: Normal Affect, Appropriate, Alert and oriented to time, place, person, mood and affect Current Medications Acetaminophen (Tylenol) 1,000 mg PO Q8H PRN PRN PRN Reason: Pain Score 1-310 Last Admin: 11/03/19 06:58 Dose: 1,000 mg Documented by: Bisacodyl (Dulcolax) 10 mg RECTAL UD PRN PRN Reason: If no BM Dibucaine (Dibucaine) 1 applic TOPICAL TID PRN PRN; Protocol PRN Reason: Discomfort Hydrocortisone (Hytone) 1 applic TOPICAL TID PRN PRN; Protocol PRN Reason: Discomfort Ibuprofen (Motrin) 600 mg PO Q6H PRN PRN PRN Reason: Pain Score 1-310 Last Admin: 11/02/19 22:19 Dose: 600 mg Documented by: Methylergonovine Maleate (Methergine) 0.2 mg IM X1 PRN PRN Reason: Excess bleeding/uterine atony Ondansetron HCl (Zofran) 4 mg IV Q4H PRN PRN PRN Reason: Nausea Oxycodone HCl (Oxyir) 5 - 10 mg PO Q4H PRN PRN PRN Reason: Pain Score 4-10/10 Last Admin: 11/03/19 03:36 Dose: 10 mg Documented by: Senna/Docusate Sodium (Senokot-S, Genesis-Colace) 1 - 2 tablet PO DAILY PRN PRN PRN Reason: Constipation Last Admin: 11/02/19 22:21 Dose: 2 tablet Documented by: Sertraline HCl (Zoloft) 150 mg PO DAILY LAURY Last Admin: 11/02/19 09:40 Dose: 150 mg Documented by: Simethicone (Mylicon) 80 mg PO PCHS PRN PRN Reason: Indigestion/Stomach pain Last Admin: 11/02/19 11:24 Dose: 80 mg Documented by: Sodium Chloride () 5 - 15 ml IV UD PRN PRN Reason: SALINE FLUSH Zolpidem Tartrate (Ambien (Generic)) 5 mg PO QHS PRN PRN PRN Reason: Insomnia Medical Necessity - Tobacco Use Smoking Status: Former smoker Assessment/Plan All Active Problems (Last Updated 11/01/19 @ 07:[address] Tabitha Macario MD) 39 weeks gestation of (Acute) 38 weeks gestation of (Resolved) This is a 24 year-old, G [2], P [2 PPD#2 s/p vacuum assisted doing well. -Mild tachycardia - cbc today -Routine postop care - -Plan for d/c later today pending cbc results
[2019-11-03 09:37] VITALS: BP 128/65; PULSE 81; RESP 16; TEMP 36.7
[2019-11-03] MEDS: Sertraline 50 MG Tablet 150 MG PO (09:41)
[2019-11-03] MEDS: Senna/Docusate Sodium 1 Tablet PO (09:54)
[2019-11-03 09:59] LABS: Hematocrit 27.1 % (37-47); Hemoglobin 8.7 g/dL (12.0-15.0); Mean Corp Hgb Conc 32.1 g/dL (32-36); Mean Corpuscular Hgb 26.9 pg (27.0-32.0); Mean Corpuscular Volume 83.6 fL (81-99); Mean Platelet Vol. 10.1 fl (6.2-12.0); Platelet Count 182 K/mm3 (150-450); RBC Distribution Width CV 16.6 % (11.6-14.6); Red Blood Count 3.24 M/mm3 (4.2-5.4); White Blood Count 14.7 K/mm3 (4.4-11.0)
[2019-11-03 14:06] VITALS: BP 136/82; PULSE 116; TEMP 36.3
[2019-11-03] MEDS: Ibuprofen 600 MG Tablet PO (16:59)
[2019-11-03 17:10] VITALS: BP 140/70; PULSE 109; RESP 16; TEMP 36.6
--- NOTE | 2019-11-03 17:16 | NURSING ---
discharged to courtesy room
--- NOTE | 2019-11-04 11:40 | CASEMGMT ---
Social Work Labor and Delivery Patient address: [address] [place] [address] Patient phone: [phone] Date and Time of Referral: 11.01.2019, 231 Referral Source: Dr. Tal Denton Date and Time of Intervention: 11.04.2019, 0930 Informant: Medical records and mother of baby (MOB) Kathleen Pop. ?This engineering technical writer is familiar with MOB's psychosocial history from prior delivery at [facility]. Of note, for continuity of care of families admitted to the [facility], this engineering technical writer also provides social work to the SCN. ? Household composition:?MOB, father of baby (FOB) Jose Miguel Soriano, and MOB's older son. ??Plan for baby to return to this home when ready to discharge. ? ? Patient's parent/guardian status:?MOB is 24 year old single female, involved with FOB who is 31 years old. ?MOB had FOB have been together since MOB's oldest child was still in diapers. ?MOB denies any history of abuse, control or intimidation in relationship with FOB. ??Minor children include baby Anjel Soriano (FOB's first child), and then Herve Rajput DOB 12.26.2014 (father is Curt Butler). ?MOB reports Herve's father is not really involved at this time and has some substance use issues. ?? ? Medical History:?MOB is G2, 1 to 2 after delivering Anjel on 11.01.2019. ?? care started at 11 weeks and regular thereafter. ?Baby born weighing 7 pounds 1 ounce. ?Apgars 8-6-5 at 1-5-10 minutes of life respectively. ??Baby admitted to SCN for hypoglycemia issues. ?Per MOB, baby Anjel has also been diagnosed with hypospadia.? Educational Status:???MOB graduated from high school and has some college education. MOB is able to read, write, and understand what is read. ?? ? Health Care Coverage:?[employer].?? ? 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 ?FOB is also a client server developer as same store, but also landscapes in the summer months. ? ? Childcare/Caregiver(s):?MOB, FOB, and then FOB's mother will assist when needed.?? ? Transportation:?No issues. Programs/Agencies Involved:?S for food and medical. ?WIC. ?[facility] with [facility]. [facility] for son Herve's counseling. ? Children Services/Legal History: ??No reports of legal issues. ?MOB reports she called children services in the last years, during this actually, due to Herve's disclosure to the current FOB about inappropriate contact between Herve and another female child who is 12. ?MOB reports children services opened a case and the situation has been addressed, with Herve starting counseling and the older child also getting some help. MOB denies any open case currently, and denies any past cases related to HECTOR's parenting or care for Herve. ?? ? Behavioral Health Issues:??Mental Health: ?HECTOR has history of depression and anxiety. ??Record indicates HECTOR has history of depression, though denies belief that she has depression. ?HECTOR has had depression and anxiety since teen years, including suicide attempts as a teen. ?Denies any attempts as an adult, as well as denies any thoughts/plans/intent/action as an adult or during this . ?MOB did have an increase of depressive symptoms during this ([facility] Depression Screen on 04.21.2019 a 5, and then PHQ9 screen on 06.22.2019 a 15). ??MOB started on Sertraline during this and dosage was increased to 100 mg. ?HECTOR is also in counseling with Al[facility] at [facility]. ???Family History: ??HECTOR's son Herve is in counseling at [facility]. ??MOB's maternal grandmother with history of bipolar and schizophrenia. ?MOB's mother suspected with history of some type of mental health issues. 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 ??MOB denies any history of use of heroin, cocaine, meth, pills, or other illicit drugs. ??Drug Screens: ?Maternal drug screen negative on 04.21.2019. ?No other testing and no testing for baby. ?? ? Family and/or Social Stressors:?Unexpected but accepted per MOB's report. ??MOB had to involved children services for her older son (complaint not regarding MOB's parenting or care of the child). ?Baby Anjel admitted into the SCN for hypoglycemia. ?? ? Support Systems:?FOB, FORadha's mother, and HECTOR's 4 sisters. ??MOB reports to have both practical and emotional support. ?? ? Assessment Met with MOB at baby's bedside. ??MOB infant, holding appropriately and appearing to be bonding with the baby. ?MOB cooperative, pleasant, smiled at appropriate times, held good eye contact, nondefensive with conversation. ??MOB reports to have essential baby supplies to care for the baby and that will have support at home going. ???MOB reports intent to remain in counseling at [facility], as well as stay on antidepressant in the period. ?MOB reports to feel better on medicine, less tired and more motivated. ??MOB reports when she is having a hard day, another way MOB tuan is to go to an AA meeting, where MOB reports to find support. ??MOB denies any other needs for home going. ??MOB was given information on depression and resources, shaken baby prevention, safe sleeping, and [facility] resource lists. ?? ? Plan HECTOR has been discharged as a patient as of 11.03.2019 but has remained in the hospital in a courtesy room while baby Anjel a patient in the SCN. Social work to follow family while in the SCN. Resource information provided to MOB for home going. ? ? No other oncology social worker requested or indicated from at [facility] standpoint.?? Response to Plan: MOB?does express understanding of proposed plan. ? ADDIE Nick 11/04/2019?
== END 2019-11-03 17:10 | disposition home or self-care (01) | DRG 560 ==
LOC: WPOUT 08:11 → WP 08:11
PROVIDERS: Obstetrics & Gynecology; Admitting Provider Obstetrics & Gynecology; Referring Provider Obstetrics & Gynecology; Visit Provider Obstetrics & Gynecology
DX: O76 Abnormality in fetal heart rate and rhythm complicating labor and delivery (principal); O34.219 Maternal care for unspecified type scar from previous cesarean delivery; O69.89X0 Labor and delivery complicated by other cord complications, not applicable or unspecified; O77.0 Labor and delivery complicated by meconium in amniotic fluid; O70.1 Second degree perineal laceration during delivery; O99.43 Diseases of the circulatory system complicating the puerperium; R00.0 Tachycardia, unspecified; O99.344 Other mental disorders complicating childbirth; O36.8330 Maternal care for abnormalities of the fetal heart rate or rhythm, third trimester, not applicable or unspecified; O99.343 Other mental disorders complicating pregnancy, third trimester; F41.9 Anxiety disorder, unspecified; F32.9 Major depressive disorder, single episode, unspecified; Z3A.39 39 weeks gestation of pregnancy; Z37.0 Single live birth; Z87.891 Personal history of nicotine dependence; Z3A.38 38 weeks gestation of pregnancy
CPT/HCPCS: 59025; 59050; 85025; 85027; 86850; 86900; 86901; 88307; 99218; J7120; A4216; G0378; J2405